=== PATIENT | female | born 1970 | race Caucasian/White ===

== ENCOUNTER 2025-03-26 05:19 | Emergency (ER) | payer BC, SELFPAY ==
[2025-03-26 05:22] VITALS: BP 149/84; PULSE 90; RESP 18; TEMP 36.6; O2SAT 100; BMI 25.1
[2025-03-26] MEDS: ONDANSETRON ODT 4 MG TAB 8 MG PO (06:10)
--- OUTSIDE RECORDS SUMMARY | 2025-03-26 06:19 | XMS_ITS | Clinical Summary ---
Author Organization [facility] Address [address] [place] [id number] Care Team Providers Care Criminal Justice Department Chair Name Role Phone Clinic, No Pcp Or Primary Care Provider Unavaila ble Medications cholecalciferol (Vitamin D) 1,000 unit capsule Take 1 Capsule (1,000 units) by mouth once daily. 0 2 Active coenzyme q10 (CoQ-10) 100 mg cap Take 1 Capsule (100 mg) by mouth once daily. 0 2 Active L.acid,km-B.ani m,bifid,infan (Fortify [place] Women Probiotic) 50 billion cell cpDR Take by mouth. 0 2 Active Apple Cider Vinegar 500 mg tab Take 2 Tablets by mouth. 0 2 Active Zinc Gluconate 30 mg tablet Take 1 Tablet (30 mg) by mouth once daily. 0 2 Active betamethasone, augmented dipropianate 0.05% (DIPROLENE AF) 0.05 % creamIndications: Dermatitis Apply topically to affected area(s) two times daily. 50 g 1 3 Active estradioL (ESTRACE) 0.5 mg tabletIndications :Hot flashes due to menopause Take 1 Tablet (0.5 mg) by mouth once daily. Use with progesterone. Use as needed for hot flashes. 30 Tablet 5 3 Active progesterone micronized (PROMETRIUM) 100 mg capsuleIndication s:Hot flashes due to menopause Take 1 Capsule (100 mg) by mouth at bedtime. This product contains peanut oil. Please verify patient allergies. Use with estrogen as needed. 30 Capsule 5 3 Active magnesium oxide 400 mg magnesium tab Take 500 mg by mouth once daily. Active omega 7-kls-naj-fish oil 183.3 mg-75 mg -91.6 mg-306 mg cap Take 1 Capsule by mouth once daily. Active valACYclovir (VALTREX) 1 gram tabletIndications :Recurrent cold sores TAKE 2 TABLETS (2000 MG) BY MOUTH TWICE DAILY FOR 2 DOSES NEEDED FOR COLD SORES. 12 Tablet 3 4 Active benzonatate (TESSALON) 200 mg capsuleIndication s:Bronchitis Take 1 Capsule (200 mg) by mouth 3 times daily if needed for Cough. 21 Capsule 4 Active Active Problems Problem Noted Date Diagnosed Date ASCUS with positive high risk HPV cervical 04/04 Overview (05/27/2023): 03/26/2016: ASCUS/HPV+ 05/25/2016: [place] - benign 10/12/2016: NIL 03/05/2020: NIL/HPV negative 05/06/2023: NIL/HPV negative Plan: Pap and HPV due in 3 years. 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 Sprain of neck Overview (04/01/2009): controlled with massage therapy, chase Randolph Sprain of thoracic region Overview (04/01/2009): controlled with massage therapy, chase Randolph Resolved Problems Problem Noted Date Diagnosed Date Resolved Date Other general counseling and advice for contraceptive management 02/23/2007 03/30/2010 Excessive or frequent menstruation 10/10/2006 03/30/2010 Immunizations Immunization Administration Dates Next Due AMB Influenza, IIV3 (Age >=3 years)(Flu Clinic Only) 08/11/2013,07/25/2010,07/03/2009,2007 Hepatitis A (Adult) 11/06/2002,05/08/2002 Hepatitis B (Adult) 11/06/2002,06/06/2002,2001 Influenza, IIV3 (Age >=3 years) 07/31/2012,07/22 Influenza, IIV4 06/28/2020, 6,08/15/2015,2013 Influenza, IIV4 (=>6mos) MDV 06/11/2022 Influenza,CCIIV4 PRESERV FREE 06/04/2023 MMR 03/12/2019,09/21/1971 Rabavert 05/13/2023,05/06/2023 Td (Age >=7 Years) 12/28/2004 Td, Preservative Free (age > = 7 Years) 05/09/2024 Tdap 03/12/2014 Tuberculin (PPD) 11/03/2020, 0,11/27/2018,2017,08/26/2016,08/15/2015,09/18/2014,0 10/15/2013,09/05/2012,05/10/2011, 010,12/09/2008,02/17/2003 Tuberculin Skin Test, Unspecified 2013,10/15/2013,09/05/2012,2010,02/02/2010,12/09/2008 Typhoid (injectable) 05/06/2023 Zoster (Shingrix-RZV, recombinant) 07/21/2022, Family History Medical History Relation Name Comments Good Health Brother Emiliano Good Health Daughter Candy Diabetes Father dx age 58 Heart Disease Father [place] age 60 Alzheimer's disease Maternal Grandfather Cancer Maternal Grandmother lung 30 or 40s Hypertension Mother dx age 50's Cancer Other maternal cousin s with breast cancer x 2, stomach cancer x 1 Cancer-breast Paternal Aunt 50s Alzheimer's disease Paternal Grandfather Diabetes Paternal Grandmother Cancer Paternal Uncle stomach, thro at Cancer-breast Sister 1 Shantell Premenopausal breast cancer Sister 1 Shantell Good Health Sister 2 Elisabeth Good Health Son 4 Relation Name Status Comments Brothnessa Cummings Alive Daughter Candy Alive Father Maternal Grandfather Maternal Grandmother Mother Alive Other Alive Paternal Aunt Alive Paternal Grandfather Paternal Grandmother Paternal Uncle Sister 1 Shantell Alive Sister 2 Elisabeth Alive Son 1 Alive step Son 2 Alive step Son 3 Alive step Son 4 Alive Social History Tobacco Use Types Packs/Day Years Used Date Smoking Tobacco: Never Passive Smoke Exposure: Never Smokeless Tobacco: Never Tobacco Cessation:Counseling Given: Not Answered Alcohol Use Standard Drinks/Week Comments No 0 (1 standard drink = 0.6 oz pur e alcohol) PHQ-2 Answer Date Recorded PHQ-2 TOTAL SCORE 0 05/09/2024 Social Connections Answer Date Recorded Do you often feel lonely or isolated from those around you? 0 04/08/2024 Financial Resource Strain Answer Date R ecorded Difficulty of Paying Living Expenses 3 04/08/2024 Difficulty of Paying Living Expenses Not on file 04/08/2024 Food Insecurity Answer Date Recorded Do you worry your food will run out before you are able to buy more? 1 04/08/2024 Transportation Needs Answer Date Record ed Does lack of transportation keep you from medica l appointments? 1 04/08/2024 Does lack of transportation keep you from work, meetings or getting things that you need? 1 04/08/2024 Housing Stability Answer Date Recorded What is your housing situation today? 1 04/08/2024 Utilities Answer Date Recorded Do you have trouble paying f or utilities (for example, heat, electricity, water, phone)? 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 Not on file Not on file No t on file Obstetrics History Para Term AB IAB SAB Ectopic Multiple Livin g Live Births 2 2 2 Date Outcome GA Total Labor Labor/2nd/3rd Weight Sex Type Anes PTL Judith A1 A5 Name Clin Para Para Last Filed Vital Signs Vital Sign Reading Time Taken Comments Blood Pressure 131/72 08/06/2024 4:11 PM FIGURE REFINISHER AND REPAIRER Pulse 64 08/06/2024 4:11 PM FIGURE REFINISHER AND REPAIRER Temperature 36.7 C (98.1 F) 08/06/2024 4:11 PM FIGURE REFINISHER AND REPAIRER Respiratory Rate 16 08/06/2024 4:11 PM FIGURE REFINISHER AND REPAIRER Oxygen Saturation 100% 08/06/2024 4:11 PM FIGURE REFINISHER AND REPAIRER Inhaled Oxygen Concentration - - Weight 70.1 kg (154 lb 8 oz) 05/09/2024 7:44 AM CDT with shoes Height 170.2 cm (5' 7) 05/09/2024 7:44 AM CDT Body Mass Index 24.2 05/09/2024 7:44 AM CDT Plan of Treatment Upcoming Encounters Date Type Department Care Team (Late st Contact Info) Description 05/13/2025 7:30 AM CDT Office Visit [facility] [id number] [place], [place] [phone] [place] [address] [place], [place] [phone] Health Maintenance Due Date Last Done Comments Pneumococcal series for age 50+ (1 of 1 - PCV) 2020 COVID-19 vaccine series ( - season) 2024 06/05/2021, 05/15/2021 BMI (ht and wt on same day) for age 18+ 05/09/2025 05/09/2024, 05/06/2023, 05/04/2022, Additional history exists Depression screening for age 12+ 05/09/2025 05/09/2024, 05/06/2023, 05/04/2022, Additional history exists Mammogram for age 45-75 05/11/2025 05/11/20 24, 06/24/2023, 04/07/2021, Additional history exists Influenza Vaccine (#1) 2025 3, 06/11/2022, 06/28/2020, Additional history exists Pap test for age 21-65 05/06/2026 3, 05/06/2023, 03/05/2020 (Completed outside of [facility]), Additional history exists Colonoscopy through age 75 07/14/2026 07/14/2021 Lipids for age 45-75 05/09/2029 05/09/2024, 05/06/2023, 05/04/2022, Additional history exists Tetanus booster 05/09/2034 05/09/2024, 02/18, 12/28/2004 Hepatitis B series for 19+ Completed 11/06, 06/06/2002, 05/08/2002 Zoster (shingles) series for age 50+ Completed 07/21/2022, 05/21/2022 HIV for age 15-65 Completed 05/06/2023, 03/12/2014 Hepatitis C screening for ag e 18-79 Completed 05/06/2023, 03/12/2014, 10/31/2013 Procedures Procedure Name Priority Date/Time Associated Diagnosis Comments XR MAMMO HALEY BILAT DIAG ELIZABETH 05/11/2024 7:57 AM CDT Subareolar mass of left breast LIPID PANEL W REFLEX MEASURED LDL Routine 05/09/2024 8:52 AM CDT Screening for cholesterol level LC HIV-1/O/2, 4TH GENERATION Routine 05/06/2023 8:48 AM CDT Screen for STD (sexually transmitted disease) LC HCV ANTIBODY RFX TO QUANT PCR Routine 05/06/2023 8:48 AM CDT Screen for STD (sexually transmitted disease) HPV HIGH RISK Routine 05/06/2023 8:20 AM CDT Screening for cervical cancer SCAN-COLONOSCOPY 07/14/2021 8:30 AM CDT from Last 3 Months or Most Recently Relevant to Health Maintenance Results * XR MAMMO HALEY BILAT DIAG (05/11/2024 7:57 AM CDT) Anatomical Region Laterality Modality BREASTS, Breast Left, Breast Right Bilateral Mammography, Other 05/11/2024 10:5 5 AM CDT Impressions 05/11/2024 11:12 AM CDT 1. Two large cysts in the retroareolar region of the LEFT breast. Patient has indicated she would like to have these percutaneously drained today. 2. No evidence suggestive of malignancy in either breast. 3. Recommend routine annual screening. BI-RADS Category 2: Benign Garrett Patino M.D. [email or web address] RADHA/troy Narrative 05/11/2024 11:12 AM CDT For Patients: As a result of the 21st Century Cures Act, medical imaging exams and procedure reports are released immediately into your electronic medical record. You may view this report before your referring provider. If you have questions, please contact your health care provider. BILATERAL DIGITAL DIAGNOSTIC MAMMOGRAM WITH COMPUTER-AIDED DETECTION AND TOMOSYNTHESIS, 05/11/2024 LEFT BREAST LIMITED ULTRASOUND, 05/11/2024 INDICATION: Palpable lump posterior to the LEFT nipple. TECHNIQUE: BILATERAL diagnostic mammogram with computer-aided detection and tomosynthesis, and LEFT breast ultrasound. COMPARISON: Mammogram 06/24/2023 and LEFT breast ultrasound 04/09/2021. BREAST COMPOSITION: The breasts are extremely dense, which lowers the sensitivity of mammography. FINDINGS: There is a large well-circumscribed mass posterior to the LEFT nipple. On ultrasound, this is consistent with a 4.4 x 3.9 x 1.7 cm benign anechoic cyst. There is a second smaller cyst anterior which measures 1.3 x 1.3 x 0.6 cm. No other mammogram or ultrasound abnormality. us Merlin CHAMBERS MAMMO Final Resul t * LIPID PANEL W REFLEX MEASURED LDL (05/09/2024 8:52 AM CDT) CHOLESTEROL,TOTAL 198 100 - 199 mg/dL 05/09/2024 1:32 PM CDT [facility] Comment: Cholesterol, Total Reference Ranges Desirable <200 mg/dL Borderline 200-239 mg/dL High >=240 mg/dL TRIGLYCERIDES 81 <150 mg/dL 05/09/2024 1:32 PM CDT [facility] HDL CHOLESTEROL 69 >40 mg/dL 1:32 PM CDT [facility] NON-HDL CHOLESTEROL 129 <145 mg/dl 05/09/2024 1:32 PM CDT [facility] CHOL/HDL RATIO 2.87 <4.50 05/09/2024 1:32 PM CDT [facility] LDL CHOLESTEROL 113 <=130 mg/dL 05/09/2024 1:32 PM CDT [facility] VLDL CHOLESTEROL 16 <=30 mg/dL 05/09/2024 1:32 PM CDT [facility] PROVIDER ORDERED STATUS FASTING 05/09/2024 1:32 PM CDT [facility] Blood BLOOD SPECIMEN / Unknown Venipuncture / Unknown 05/09/2024 8:52 AM CDT 05/09/2024 8:54 AM CDT us Merlin CHAMBERS CHEMISTRY Final Resul t [facility] [address] [place] [address], [place] * LC HCV ANTIBODY RFX TO QUANT PCR (05/06/2023 8:48 AM CDT) Pathologist [facility] HCV Ab Non Reactive Non Reactive 05/11/2023 2:08 PM CDT [facility] ([facility] Blood BLOOD SPECIMEN / Unknown Venipuncture / Unknown 05/06/2023 8:48 AM CDT 05/06/2023 8:51 AM CDT Narrative [facility] ([facility]) - 05/11/2023 2:08 PM CDT Performed at: [address] [place] [id number] Software Analyst: Alex Tapia MD, Phone: [phone] us Justice Montanez DO LABORATORY Final Res ult [facility] ([facility]) [address] [place] [id number], [place] * LC HIV-1/O/2, 4TH GENERATION (05/06/2023 8:48 AM CDT) Pathologist [facility] HIV Scr 4th Gen Non Reactive Non Reactive 05/11/2023 12:08 PM CDT [facility] ([facility]) Comment: HIV Negative HIV-1/HIV-2 antibodies and HIV-1 p24 antigen were NOT detected. There is no laboratory evidence of HIV infection. Blood BLOOD SPECIMEN / Unknown Venipuncture / Unknown 05/06/2023 8:48 AM CDT 05/06/2023 8:51 AM CDT Narrative [facility] ([facility]) - 05/11/2023 12:08 PM CDT Performed at: [address] [id number] Software Analyst: Alex Tapia MD, Phone: [phone] [facility] Final Res ult [facility] ([facility]) [address] [place] [id number], * HPV HIGH RISK (05/06/2023 8:20 AM CDT) [facility] TYPE 16 Negative Negative 05/11/2023 5:12 PM CDT [facility] TYPE 18 Negative Negative 05/11/2023 5:12 PM CDT [facility] OTHER HIGH RISK TYPES Negative Negative 05/11/2023 5:12 PM CDT [facility] Other (Cervical) Non-Blood / Unknown 05/06/2023 8:20 AM CDT 05/09/2023 4:24 PM CDT Narrative [facility] - 05/11/2023 5:12 PM CDT HPV types 16, 18, 31, 33, 35, 39, 45, 51, 52, 56, 58, 59, 66 and 68 DNA were undetectable or below the pre-set threshold. Methodology: Addison Kahlil 4800 HPV Test Justice Mimi Montanez DO MICROBIOLOGY Final Res ult [facility] [address] [place] [address], [place] * SCAN-COLONOSCOPY (07/14/2021 8:30 AM CDT) Narrative Procedure Note Kane Santos MD - 07/14/2021 7:47 AM CDT [facility] [address] [place] [address], [address], [place] [address] Patient Name: Chasity Matias Gender: Female Exam Date: 07/14/2021 Visit Number: [id number] Age: 50 Years Date of : 1970 Attending MD: Kane Lindsay MD Medical Record#: [id number] Procedure: Colonoscopy Indications: Colorectal cancer screening Referring MD: Justice Montanez MD Primary MD: Justice Montanez MD Medications: Admitting Medications: 0.9% Normal Saline at TKO Intra Procedure Medications: Patient received monitored anesthesia care. Complications: No immediate complications Procedure: An examination of the heart and lungs was performed and found to be withinacceptable limits. . The patient was therefore deemed a reasonablecandidate for endoscopy and sedation. The risks and benefits of the procedure were explained to the patient.After obtaining informed consent, the patient received monitoredanesthesia care and I passed the scope without difficulty via the rectum to the ileum. The appendiceal orificeand ic valve were identified. The scope was retroflexed during theexamination The quality of the prep was excellent (Miralax/Gatorade/2tablets Bisacodyl/Magnesium Citrate). This was a complete examination throughout the entire colon. Findings: Normal finding. Location - ileum. Polyp location: ileocecal valve. Quantity: 1. Size: 2 mm. Polyp shape:sessile. Maneuver: polypectomy was performed with a cold snare. Removal: complete. Retrieval: complete. Bleeding: none. Polyp location: transverse colon. Quantity: 1. Size: 8 mm. Polyp shape:sessile. Maneuver: piecemeal polypectomy was performed with a cold snarew/EMS . Removal: complete. Retrieval: complete. Bleeding: none. Polyp location: rectum. Quantity: 1. Size: 3 mm. Polyp shape:pedunculated. Maneuver: polypectomy was performed with a cold snare . Removal: complete. Retrieval: complete. Bleeding: none. Hemorrhoids. Internal and external hemorrhoids without bleeding. Remainder of the exam is normal. Impression: Colorectal polyps Internal and external hemorrhoids without complication Preliminary Plan: The patient and their physician will receive a copy of the pathologyreport as well as pathology-based recommendations for future screening orsurveillance. Pathology Results: A: COLON, ILEOCECAL VALVE, POLYP: 1. Normal colonic mucosa; a lymphoid aggregate is present(clinically, 1 polyp) 2. Negative for serrated change, dysplasia, and malignancy B: COLON, TRANSVERSE, POLYP: 1. Sessile serrated adenoma 2. Negative for overt dysplasia 3. Per the colonoscopy report: a. Polyp size: 8 mm b. Resection: Complete c. Retrieval: Complete C: RECTUM, POLYP: 1. Tubular adenoma 2. Negative for high grade dysplasia 3. Per the colonoscopy report: a. Polyp size: 3 mm b. Resection: Complete c. Retrieval: Complete MICROSCOPIC A: Performed B: Performed C: Performed Electronically signed by: Velasquez Hammer [place] [address] Orders Instruction(s)/Education: Instruction/Education Timeframe Assessment Colon Cancer Prevention K63.5 Colon Polyps K63.5 Hemorrhoids K63.5 High Fiber Diet K63.5 Final Plan: Repeat colonoscopy in 5 years. We will attempt to contact you at appropriate intervals via U.S. mail. Wemay not be able to find you or contact you at that time, therefore youshould know that the responsibility for following our recommendation restswith you. If you don't hear from us at the time your procedure is due,please contact our office to schedule an appointment. If your contactinformation should change, please contact our office so that we can updateyour record. _Electronically signed by: Kane Lindsay MD 07/14/2021 cc: Justice Montanez MD cc: Justice Montanez MD us Kane Santos MD OTHER Kelsea l Result from Last 3 Months or Most Recently Relevant to Health Maintenance Insurance [facility] Care Teams Criminal Justice Department Chair Relationship Specialty Start Date End Date Clinic, No Pcp Or . PCP - General 12/19/23
--- OUTSIDE RECORDS SUMMARY | 2025-03-26 06:19 | XMS_ITS | Clinical Summary ---
Author Organization [facility] Health Address [address] [place] [address] Care Team Providers Care Customer Solutions Supervisor Name Role Phone Unavailable Primary Care Provider Unavailabl e Allergies No known active allergies Medications benzonatate (TESSALON) 200 mg capsule Take 200 mg by mouth 3 (three) times a day if needed. 4 Active betamethasone, augmented, (DIPROLENE) 0.05 % cream APPLY TOPICALLY TO THE AFFECTED AREA TWICE DAILY 4 Active DOCOSAHEXAENOIC ACID ORAL Take 1 capsule by mouth 1 (one) time each day. Active magnesium oxide (MAG-OX) 400 mg tablet Take 500 mg by mouth 1 (one) time each day. Active Active Problems Problem Noted Date Diagnosed Date Periodontitis 10/05/2024 Sprain of neck 10/01/2024 Overview (10/01/2024): controlled with massage therapy, chase Randolph Sprain of thoracic region 10/01/2024 Overview (10/01/2024): controlled with massage therapy, chase Randolph ASCUS with positive high risk HPV cervical 04/04 Overview (10/01/2024): 03/26/2016: ASCUS/HPV+ 05/25/2016: [place] - benign 10/12/2016: NIL 03/05/2020: NIL/HPV negative 05/06/2023: NIL/HPV negative Plan: Pap and HPV due in 3 years. 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 Social History Tobacco Use Types Packs/Day Years Used Date Smoking Tobacco: Never Smokeless Tobacco: Never Tobacco Cessation:Counseling Given: Not Answered Alcohol Use Standard Drinks/Week Comments Never 0 (1 standard drink = 0.6 oz pur e alcohol) Comments No Sex and Gender Information Value Date Recorded Sex Assigned at Not on file Legal Sex Female 9:51 AM PDT Gender Identity Not on file Sexual Orientation Not on file Last Filed Vital Signs Vital Sign Reading Time Taken Comments Blood Pressure 104/69 10/01/2024 6:59 AM MST Pulse 67 10/01/2024 6:59 AM MST Temperature - - Respiratory Rate - - Oxygen Saturation - - Inhaled Oxygen Concentration - - Weight - - Height - - Body Mass Index - - Plan of Treatment Health Maintenance Due Date Last Done Comments Dental X-Ray: Full Mouth 1970 Scaling and Root Planing 1970 Periodontal Maintenance 12/31/2024 10/01/2024 Dental Oral Exam 04/01/2025 10/01/2024 Dental X-Ray: Bitewings 04/01/2025 10/01/2024 Dental CBCT 08/22/2027 08/22/2024 Dental X-Ray: Panoramic 08/24/2027 08/23/2024 Procedures Procedure Name Priority Date/Time Associated Diagnosis Comments PERIO MAINTENANCE Routine 10/01/2024 7:3 0 AM MST COMPREHENSIVE ORAL EVALUATION - NEW OR ESTABLISHED PATIENT Routine 10/01/2024 7:00 AM MST Encounter for dental examination and cleaning without abnormal findings PADDER CBCT Routine 08/22/2024 7:15 AM MST from Last 3 Months or Most Recently Relevant to Health Maintenance Insurance [address] [place] [address] [facility]
--- OUTSIDE RECORDS SUMMARY | 2025-03-26 06:19 | XMS_ITS | Encounter Summary ---
Author Organization [facility] Health Address [address] [place] [address] Care Team Providers Care Telecommunications Equipment Installer Name Role Phone Unavailable Primary Care Provider Unavailabl e Prior Encounters Date Type Department Care Team Description 11/07/2024 7:00 AM [facility] Office Visit [facility] [address] [place] [address] Karoline Nguyen DMD 10/01/2024 7:30 AM [facility] Office Visit [facility], [address] [place] [address] Calin Musa, [facility] 10/01/2024 7:00 AM [facility] Office Visit [facility], [address] [place] [address] Gina Basurto DDS Dental caries, unspecified (Primary Dx); Encounter for dental examination and cleaning without abnormal findings 08/22/2024 7:15 AM [facility] Office Visit [facility], [address] [place] [address] Karoline Nguyen, NANCY Last Filed Vital Signs Vital Sign Reading Time Taken Comments Blood Pressure 104/69 10/01/2024 6:59 AM [facility] Pulse 67 10/01/2024 6:59 AM [facility] Temperature - - Respiratory Rate - - Oxygen Saturation - - Inhaled Oxygen Concentration - - Weight - - Height - - Body Mass Index - - Plan of Treatment Not on file Procedures Procedure Name Priority Date/Time Associated Diagnosis Comments ADJUST BITE Routine 11/07/2024 7:00 AM [facility] RE-EVALUATION POST-OPERATIVE OFFICE VISIT Routine 11/07/2024 7:00 AM [facility] IL PASTE Routine 10/01/2024 7:30 AM [facility] ORAL HYGIENE INSTRUCTIONS Routine 2024 7:30 AM [facility] TOPICAL APPLICATION OF FLUORIDE VARNISH Routine 10/01/2024 7:30 AM [facility] PERIO MAINTENANCE Routine 10/01/2024 7:3 0 AM [facility]ST IPE Routine 10/01/2024 7:30 AM [facility] INTRAORAL PHOTO Routine 10/01/2024 7:00 AM [facility] INTRAORAL PHOTO Routine 10/01/2024 7:00 AM [facility] INTRAORAL PHOTO Routine 10/01/2024 7:00 AM [facility] INTRAORAL PHOTO Routine 10/01/2024 7:00 AM [facility] ADDITIONAL X-RAY Routine 10/01/2024 7:00 AM [facility] ADDITIONAL X-RAY Routine 10/01/2024 7:00 AM [facility]ST ADDITIONAL X-RAY Routine 10/01/2024 7:00 AM M[facility] ADDITIONAL X-RAY Routine 10/01/2024 7:00 AM [facility] ADDITIONAL X-RAY Routine 10/01/2024 7:00 AM [facility] SINGLE X-RAY Routine 10/01/2024 7:00 AM MST BITEWINGS - FOUR RADIOGRAPHIC IMAGES Routine 10/01/2024 7:00 AM [facility]ST COMPREHENSIVE ORAL EVALUATION - NEW OR ESTABLISHED PATIENT Routine 10/01/2024 7:00 AM MST Encounter for dental examination and cleaning without abnormal findings 2 MO AMALGAM FILLING Routine 10/01/2024 12:00 AM MST 3 CEREC CROWN Routine 10/01/2024 12:00 AM MST 30 DO COMPOSITE FILLING Routine 10/01/19 25 12:00 AM MST 29 DO COMPOSITE FILLING Routine 10/01/19 25 12:00 AM MST 4 DO COMPOSITE FILLING Routine 12:00 AM MST 19 MOD COMPOSITE FILLING Routine 025 12:00 AM MST 18 MO COMPOSITE FILLING Routine 10/01/19 25 12:00 AM MST 17 EXTRACTION - A Routine 10/01/2024 12: 00 AM MST 32 EXTRACTION - A Routine 10/01/2024 12: 00 AM MST 1 EXTRACTION - A Routine 10/01/2024 12:0 0 AM MST NC X-RAY Routine 08/22/2024 7:15 AM MST 14 CEMENT CROWN Routine 08/22/2024 7:15 AM MST 14 CORE BUILDUP, INCLUDING ANY PINS WHEN REQUIRED Routine 08/22/2024 7:15 AM MST 14 CERECFIRED CROWNPOST Routine 08/22/20 7:15 AM MST CONSIGNEE CBCT Routine 08/22/2024 7:15 AM MST BITEWING - SINGLE RADIOGRAPHIC IMAGE Routine 08/22/2024 7:15 AM MST ADDITIONAL X-RAY Routine 08/22/2024 7:15 AM MST SINGLE X-RAY Routine 08/22/2024 7:15 AM MST LIMITED ORAL EVALUATION - PROBLEM FOCUSED Routine 08/22/2024 7:15 AM MST 14 ROOT CANAL Routine 08/22/2024 12:00 AM [facility] 16 EXTRACTION - A Routine 08/22/2024 12: 00 AM [facility] Visit Diagnoses Diagnosis Start Date Dental caries, unspecified 10/01/2024 Encounter for dental examination and cleaning without abnormal findings 10/01/[id number] AND [place] PPO
[2025-03-26] MEDS: MECLIZINE HCL 25 MG TABLET PO (06:56)
--- NOTE | 2025-03-26 07:30 | ED.GENADULT ---
HPI - General Adult General Chief complaint: Dizziness/Vertigo Stated complaint: Vertigo Time Seen by Provider: 03/26/25 05:34 Source: patient Mode of arrival: ambulatory Limitations: no limitations History of Present Illness HPI narrative: [age] for a female presents to the emergency department with about 24 hours of feeling dizzy. Was evaluated in urgent care yesterday. Was recommended to start Flonase, was told she had eustachian tube dysfunction. Patient reports that it is a feeling of room spinning type vertigo, worse when she closes her eyes. Not really associated with head movement but I certainly do illicit it with head movement on exam today. She has had nausea and vomiting. No fever. No trauma or injury. No specific headache. No prior history of similar symptoms. No facial pain. No shortness of breath, movement deficits or focal neurological changes. No vision changes. Has been using the Flonase with no significant improvement. Has not tried any other interventions. Past medical history she reports is benign. No long-term medications, no allergies. No history of ENT surgeries. ROS is notable for the dizziness and vomiting as stated above, otherwise denies times 12 systems today. Related Data Home Medications ?Medication ?Instructions ?Recorded ?Confirmed fluticasone propionate 50 2 spray intranasal DAILY PRN 03/26/25 03/26/25 mcg/actuation nasal spray,suspension Previous Rx's ?Medication ?Instructions ?Recorded meclizine 25 mg tablet 25 mg PO TID PRN vertigo #30 tabs 03/26/25 ondansetron 4 mg disintegrating 4 mg PO Q6-8H PRN nausea and 03/26/25 tablet vomiting #10 tabs prednisone 20 mg tablet 20 mg PO BID 3 days #6 tabs 03/26/25 Allergies Allergy/AdvReac Type Severity Reaction Status Date / Time No Known Drug Allergies Allergy Verified 03/26/25 06:09 [facility] Social History Smoking Status: Never smoker Do you use any of these nicotine containing products: None Second hand tobacco smoke exposure: No How often do you have a drink containing alcohol: never How often do you have six or more drinks on one occasion: Never AUDIT-C Alcohol total score: 0 Non-prescribed substance use: denies use Exam Const: Vital Signs, click to edit/add: Vital Signs - 24 hr 03/26/25 05:22 Temperature 97.8 F Pulse Rate [Pulse Oximeter] 90 Respiratory Rate 18 Blood Pressure [Ri ght Upper Arm] 149/84 H Pulse Oximetry 100 Oxygen Delivery Me thod Room Air Documenting provider has reviewed patient's vital signs: yes Common normals: no apparent distress and alert Other: Friendly and cooperative, excellent historian. Does seem uncomfortable from the dizziness. HENMT: Common normals: normocephalic, head/scalp atraumatic, TM's normal bilaterally, moist oral mucous membranes and oropharynx normal Head and scalp: normocephalic and atraumatic Face and sinus: normal facial exam Tympanic membrane: TM's normal bilaterally Eye: Common normals: PERRL Pupil: PERRL Other: Left beating horizontal nystagmus on exam. Neck & C-Spine: Common normals: full ROM, no lymphadenopathy and no meningeal signs General: normal visual inspection Resp: Common normals: normal respiratory effort, no use of accessory muscles and clear to auscultation bilaterally Effort & inspection: able to speak in complete sentences Auscultation: clear to auscultation bilaterally Cardio: Common normals: regular rate, regular rhythm, S1 normal heart sound, S2 normal heart sound and no murmurs Rate: regular rate Rhythm: regular rhythm Heart sounds: S1 normal and S2 normal GI: Common normals: Normal to inspection, nondistended, normoactive bowel sounds present and soft to palpation Palpation: soft Extremity: Common normals: normal to inspection and normal capillary refill Neuro: Common normals: CN's II-XII intact bilaterally and moves all extremities Sensorium/orientation: alert Meningeal signs: no meningeal signs Coordination/balance: does not sway with eyes open Speech: speech normal Gait (neuro): normal gait Coordination: Romberg test normal and does not sway with eyes open Other: Leah-Hallpike maneuver strongly positive. Psych: Common normals: thought process normal and cooperative Thought process: normal thought process Attention/concentration: attention grossly intact Memory/cognition: memory grossly intact Insight: insight good Judgement: judgment good Skin: Common normals: no rashes or lesions noted General skin exam: no rashes or lesions noted Course Course ED Course: 54-year-old female with 24 hours of dizziness and vertigo. Exam indicates peripheral source rather than central. Counseled patient on findings, do not recommend CT scan. Counseled that these episodes can be quite frustrating and unfortunately people that get them do tend to get recurrent episodes so learning how to manage these can be critical for long-term success. We discussed home Jefry maneuvers. A written instruction sheet is provided and we discussed how to perform these. She will do those 5 times, pausing at least 30 but no more than 90 seconds at each step, repeating 5 times twice daily for the next few days and then decreasing to once daily for 2 weeks total. She will be given a dose of Zofran 8 mg p.o. x1 here in the ED and after about 15 minutes 20 of prednisone and 25 of meclizine. Prescriptions for Zofran, meclizine and prednisone sent to pharmacy. Patient did have some evidence of eustachian tube dysfunction so I do think she would benefit from the prednisone in addition to the symptomatic treatment medications. She will repeat another dose of the meclizine this afternoon at about 2 and she may continue the Zofran if needed as well. The prednisone will be for 3 days. Push salty foods and fluids, rest for today. Most people start to improve after about 48 hours on medications, hopefully she responds at the 24 hour kvng with this more aggressive treatment. Counseled patient that episodes do tend to last about 3 days on average. Taking meclizine at the 1st sign of symptoms may help reduce the intensity and duration. Okay to keep the prescribed supply to use for a future episode. We reviewed the alarm symptoms that would warrant ED presentation and would be more consistent with a central nervous system source. Written instructions on this are provided as well. If she has not noticed any improvement in 48 hours, I would recommend re-evaluation. She verbalizes understanding and agreement. No driving until symptoms improved, likely another 24-48 hours. Vital Signs Vital signs: Initial Vital Signs Temperature 97.8 F 03/26/25 05:22 Temperature Source Temporal Artery Scan 03/26/25 05:22 Pulse Rate 90 03/26/25 05:22 Respiratory Rate 18 03/26/25 05:22 Blood Pressure 149/84 H 03/26/25 05:22 Blood Pressure Mean 105 03/26/25 05:22 Blood Pressure Position Sitting 03/26/25 05:22 Pulse Oximetry 100 03/26/25 05:22 Oxygen Delivery Method Room Air 03/26/25 05:22 Vital Signs Temperature 97.8 F 03/26/25 05:22 Pulse Rate 90 03/26/25 05:22 Respiratory Rate 18 03/26/25 05:22 Blood Pressure 149/84 H 03/26/25 05:22 Pulse Oximetry 100 03/26/25 05:22 Oxygen Delivery Method Room Air 03/26/25 05:22 Temperature 97.8 F 03/26/25 05:22 Pulse Rate 90 03/26/25 05:22 Respiratory Rate 18 03/26/25 05:22 Blood Pressure 149/84 H 03/26/25 05:22 Pulse Oximetry 100 03/26/25 05:22 Oxygen Delivery Method Room Air 03/26/25 05:22 Medications Administered Medications: Discontinued Medications Generic Name Dose Route Start Last Admin Trade Name Dexter PRN Reason Stop Dose Admin Meclizine HCl 25 mg 03/26/25 06:02 03/26/25 06:56 Meclizine Hcl 25 Mg Tablet PO 03/26/25 06:03 25 mg ONCE ONE Administration Ondansetron HCl 8 mg 03/26/25 06:02 03/26/25 06:10 Ondansetron Odt 4 Mg Tab PO 03/26/25 06:03 8 mg ONCE ONE Administration Prednisone 20 mg 03/26/25 06:03 03/26/25 06:56 Prednisone 20 Mg Tablet PO 03/26/25 06:04 20 mg ONCE ONE Administration Discharge Plan Discharge Clinical Impression: Benign paroxysmal positional vertigo Patient Disposition: Home, Self-Care Condition: Stable Instructions: Vertigo (DC) Additional Instructions: As we discussed, these episodes of vertigo can be quite debilitating and tend to last for several days. Unfortunately, those that get them do tend to be prone to getting them again. For acute treatment, I recommend a combination of an anti vertigo medicine, meclizine. This does take a couple of hours to get full effect. Your given a dose here in the emergency room. Take another dose at about 2:00 p.m.. You will need to pick this up from the pharmacy. Continue taking this up to every 8 hours to help reduce vertigo symptoms. For many, 2 doses the 1st day and then 1 daily for 5 days is sufficient. I have also given you prescription for anti nausea medicine to use if needed. This is known as Zofran, also called ondansetron. Your given a dose in the emergency department. You may not need further doses but it is nice to have just in case. Continue to push fluids and eat salty foods as that does help reset the fluid balance system. I have given you a handout on home Jefry maneuvers. Your affected ear is your left ear. Do this exercise 5 times in a row, every 8 hours while awake for the next couple of days to help reset things. After 2 days, you may switch to morning and bedtime for 2 weeks. Because you do have evidence of eustachian tube dysfunction on the left, I do recommend a short course of prednisone. This is an anti-inflammatory medication that will help with the swelling and fluid in the eustachian tube and reduce pressure in the inner ear. Take another dose this afternoon at about 2:00 p.m., not to close to bedtime. Continue taking it twice daily until symptoms resolve. If your symptoms do resolve by tomorrow morning, continue taking the prednisone just once daily for an additional 2 days, discarding or saving the rest for a future episode. Symptoms should improve 48 hours from now on these treatments. If you are noticing no improvement, I recommend re-evaluation. In the future, use the meclizine right away at the 1st sign of vertigo and there is a good chance you may be able to ho off the rest of the episode. If you notice triggers like travel, allergies, other factors, it is okay to use the meclizine as a preventative as well. Activity Level: Activity as Tolerated Discharge Diet: Regular Prescriptions: New meclizine 25 mg tablet 25 mg PO TID PRN (Reason: vertigo) Qty: 30 1RF prednisone 20 mg tablet 20 mg PO BID 3 Days Qty: 6 0RF ondansetron 4 mg tablet,disintegrating 4 mg PO Q6-8H PRN (Reason: nausea and vomiting) Qty: 10 0RF No Action fluticasone propionate 50 mcg/actuation spray,suspension 2 spray intranasal DAILY PRN Rx Instructions: administer into each nostril Stand Alone Forms: [facility] Info Instructions
== END 2025-03-26 07:30 | disposition home or self-care (01) ==
PROVIDERS: Emergency Provider Family Medicine; PCP Physician Assistant Medical
DX: H81.13 Benign paroxysmal vertigo, bilateral (principal)
CPT/HCPCS: 99283; A9270; J7512

== ENCOUNTER 2025-04-04 10:46 | Outpatient (RCR) | payer BC, SELFPAY | END 2025-06-17 10:33 | disposition home or self-care (01) | PROVIDERS: PCP Physician Assistant Medical; Visit Provider Physician Assistant | DX: R42 Dizziness and giddiness (principal); R26.81 Unsteadiness on feet; Z51.89 Encounter for other specified aftercare | CPT/HCPCS: 97161 ==